=== PATIENT | male | born 1960 | race Caucasian/White ===

== ENCOUNTER 2016-09-02 10:52 | Emergency (ER) | payer OTHER ==
[~2016-09-02] VITALS: Ht 180.3 cm; Wt 147.0 kg
--- NOTE | ~2016-09-02 | EKG ---
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
[2016-09-02] MEDS ORDERED: METFORMIN HCL500 MG PO (11:13)
[2016-09-02] MEDS ORDERED: NORVASC 2.5 MG2.5 M1 PO (11:14)
[2016-09-02] MEDS ORDERED: LANTUS100 UNIT/M SUBQ (11:14)
[2016-09-02] MEDS ORDERED: CHLORTHALIDONE25 MG PO (11:17)
[2016-09-02] MEDS ORDERED: ATORVASTATIN CA40 MG PO (11:17)
[2016-09-02] MEDS ORDERED: AVAPRO 150 MG150 MG PO (11:17)
[2016-09-02 11:20] LABS: ABSOLUTE NEUTROPHILS 6.5 thou/uL (1.4-8.2); BASOPHILS 0.6 % (0.0-2.0); EOSINOPHILS 2.1 % (0.0-3.0); HEMOGLOBIN 12.9 gm/dL (14.0-18.0); LYMPHOCYTES 12.6 % (24.0-44.0); MCH 29.1 pg (26.0-34.0); MCV 85.5 fL (80.0-100.0); MONOCYTES 5.6 % (1.0-8.0); PLATELET COUNT 232 thou/uL (150-400); POLYS 79.1 % (36.0-66.0); RBC 4.45 mil/uL (4.50-6.00); RDW 14.2 % (10.5-14.5); WBC 8.2 thou/uL (4.0-11.0)
[2016-09-02 11:23] LABS: MANUAL DIFF NO
[2016-09-02 11:28] LABS: ANION GAP 11 mmol/L (7-16); BUN 16 mg/dL (7-18); CALCIUM 9.4 mg/dL (8.5-10.1); CHLORIDE 102 mmol/L (98-107); CO2 25 mmol/L (21-32); CREATININE 0.9 mg/dL (0.7-1.3); GLUCOSE 144 mg/dL (74-106); POTASSIUM 3.3 mmol/L (3.5-5.1); SODIUM 138 mmol/L (136-145)
[2016-09-02 11:36] LABS: TROPONIN-I < 0.04 ng/mL (<0.04-0.07)
[2016-09-02 13:58] VITALS: BP 103/63
== END 2016-09-02 14:00 | disposition home or self-care (01) ==
LOC: ER 10:52
PROVIDERS: Emergency Medicine
DX: R61 Generalized hyperhidrosis (principal); R42 Dizziness and giddiness; E87.6 Hypokalemia; I10 Essential (primary) hypertension; E11.9 Type 2 diabetes mellitus without complications; F10.99 Alcohol use, unspecified with unspecified alcohol-induced disorder